=== PATIENT | female | born 1970 | race Caucasian/White ===

== ENCOUNTER 2017-03-07 18:17 | Emergency (ER) | payer OTHER ==
[~2017-03-07] VITALS: Ht 170.2 cm; Wt 170.0 kg
[2017-03-07 18:22] VITALS: Ht 170.2 cm; Wt 170.0 kg
[2017-03-07 18:59] LABS: URINE BLOOD (Dip) POC Trace-intact (NEGATIVE)
--- NOTE | 2017-03-07 18:59 | ERD ---
ER Documentation Chief Complaint Date/Time DATE: 03/07/17 TIME: 18:55 Chief Complaint RIGHT LOWER AREOLA ABSCESS X1WEEK DRAINED X1DAY/DYSURIA/HEMATURIA X1.5WKS HPI Patient is a 46-year-old female with a past medical history of present who presents to the emergency department for concerns of an abscess to her right breast as well as dysuria and hematuria. Patient states that the abscess started approximately 1 week ago. Patient states last night due to having severe pain, she decided to open up the abscess herself. She states that she uses a blade she had at home. he states that copious discharge was expressed from the abscess site. She states it was "like a fountain". She states that initially the abscess was the size of an ache however it is much smaller now. Patient states that she continues to have discharge being expressed from the affected site. Patient does report tactile fevers. Patient states she last took [place] and tramadol at 3 AM this morning for her fevers and pain. Patient also reports dysuria and hematuria for a week and a half. Patient denies any flank pain. Patient denies any abdominal pain, nausea, vomiting, diarrhea. ROS All systems reviewed and are negative except as per history of present illness. Medications Home Meds Active Scripts Tramadol HCl (Tramadol HCl) 50 Mg Tablet, 50 MG PO Q4 Y for PAIN, #10 TAB Prov:BETTE NAVA PA-C 03/07/17 Ibuprofen* (Motrin*) 600 Mg Tab, 600 MG PO Q6, #30 TAB Prov:BETTE NAVA PA-C 03/07/17 Cephalexin* (Keflex*) 500 Mg Capsule, 500 MG PO QID for 10 Days, CAP Prov:BETTE NAVA PA-C 03/07/17 Sulfamethoxazole/Trimethoprim* (Bactrim Ds* Tablet) 1 Each Tablet, 1 TAB PO BID , #20 TAB Prov:BETTE NAVA PA-C 03/07/17 Allergies Allergies: Coded Allergies: Latex (Verified Allergy, Severe, RASHES (HANDS),PERIORBITAL EDEMA AND EDEMA OF THE FACE, LIPS, 04/13/11) No Allergy Information Available (Verified Allergy, Mild, 04/13/11) PMhx/Soc History of Surgery: Yes (LAP BAND (2005), CHOLECYSTECTOMY (1995)) Anesthesia Reaction: No Hx Neurological Disorder: No Hx Respiratory Disorders: No Hx Cardiac Disorders: Yes (HTN) Hx Psychiatric Problems: No Hx Miscellaneous Medical Probl: No Hx Alcohol Use: No Hx Substance Use: No Hx Tobacco Use: No Smoking Status: Never smoker FmHx Family History: No diabetes Physical Exam Vitals Vital Signs Date Time Temp Pulse Resp B/P Pulse Ox O2 Delivery O2 Flow Rate FiO2 03/07/17 18:22 98.3 95 18 141/83 96 Physical Exam GENERAL: Well-developed, well-nourished female. Appears in no acute distress. HEAD: Normocephalic, atraumatic. EYES: Pupils are equally reactive bilaterally. EOMs grossly intact. No conjunctival erythema. ENT: Moist mucous membranes. No uvula deviation. No kissing tonsils. NECK: Supple. No meningismus. Normal range of motion of the neck. RIGHT BREAST: 3 cm circular abscess noted below areola, + active discharge being expressed from wound. Minimal warmth. Minimal surrounding erythema. LUNG: Clear to auscultation bilaterally. No rhonchi, wheezing, rales or coarse breath sounds. HEART: Regular rate and rhythm. No murmurs, rubs or gallops. ABDOMEN: Soft, nontender, and nondistended. Positive bowel sounds in all four quadrants. No rebound tenderness, no guarding. (-) McBurney's point tenderness. BACK: No midline tenderness. No CVA tenderness bilaterally. EXTREMITIES: Equal pulses bilaterally. No peripheral clubbing, cyanosis or edema. No unilateral leg swelling. NEUROLOGIC: Alert and oriented. Moving all four extremities without any difficulty. Normal speech. Steady gait. SKIN: Normal color. Warm and dry. No rashes or lesions. Results 24 hrs Laboratory Tests Test 03/07/17 19:04 Bedside Urine pH (LAB) 5.5 Bedside Urine Protein (LAB) Trace Bedside Urine Glucose (UA) Negative Bedside Urine Ketones (LAB) Negative Bedside Urine Blood Trace-intact Bedside Urine Nitrite (LAB) Negative Bedside Urine Leukocyte Esterase (L 1+ Current Medications Medications (Trade) Dose Ordered Sig/Breezy Route PRN Reason Start Time Stop Time Status Last Admin Dose Admin Ketorolac Tromethamine (Toradol) 30 mg ONCE STAT IM 03/07/17 19:27 03/07/17 19:28 DC 03/07/17 19:31 Procedures/MDM ED COURSE: The patient was stable throughout ED course. I kept the patient and/or family informed of laboratory and diagnostic imaging results throughout the ED course. MEDICATIONS GIVEN: Toradol IM Patient tolerated medication well with no adverse reactions. Patient reported improvement in pain. MEDICAL DECISION MAKING: This is a 46-year-old female who presents to the ED with numerous concerns including an abscess to her right breast as well as dysuria and hematuria. Vital signs were reviewed. Patient was afebrile. Patient did attempt to drain her abscess herself last night using a blade. Wound was noted to be actively draining discharge. I did offer the patient a further incision and drainage of her abscess however she declined. Patient stated "it is too painful". At this time patient will be given p.o. antibiotics and advised to return in 2 days for wound recheck. Patient's urinalysis showed 1+ leukocyte esterase and trace blood. Given these findings, the patient's presentation is most consistent with urinary tract infection and breast abscess. I have a much lower clinical concern for , pyelonephritis, nephrolithiasis, deep space infection, lymphangitis, necrotizing fasciitis. PRESCRIPTIONS: Keflex, Bactrim, Ibuprofen, Tramadol DISCHARGE: At this time, patient is stable for discharge and outpatient management. She was advised to complete full course of antibiotics. Patient was advised to return to the ED in 2 days for wound recheck of breast abscess. I have instructed the patient to follow-up with his/her primary care physician in 1-2 days. Patient should repeat UA in 2 weeks to check for resolution of urinary tract infection. If symptoms persist, patient may need to see a specialist for further examinations and testing. I have instructed the patient to promptly return to the ER at any time for any new or worsening symptoms including increased pain, fever, nausea, vomiting, urinary changes or weakness. The patient and/or family expressed understanding of and agreement with this plan. All questions were answered. Home care instructions were provided. Departure Diagnosis: Primary Impression: Multiple complaints Additional Impressions: Abscess of breast UTI (urinary tract infection) Urinary tract infection type: site unspecified Hematuria presence: with hematuria Qualified Code: N39.0 - Urinary tract infection with hematuria, site unspecified Condition: Stable Patient Instructions: Understanding Urinary Tract Infections (UTIs), Abscess, Antiobiotic Treatment Only Additional Instructions: Take full course of antibiotics. Warm compresses to the affected area. Patient was advised to return in 2 days for wound recheck. Patient advised to return sooner for any new or worsening symptoms including severe pain, fevers, chills, warmth, swelling or redness. Call your primary care doctor TOMORROW for an appointment during the next 1-2 days.See the doctor sooner or return here if your condition worsens before your appointment time. BETTE NAVA PA-C Mar 07, 2017 18:59
[2017-03-07] MEDS ORDERED: SULF1TAB31 PO (19:15)
[2017-03-07] MEDS ORDERED: CEPH-443 PO (19:16)
[2017-03-07] MEDS ORDERED: IBUP-1542 PO (19:27)
[2017-03-07] MEDS ORDERED: KETOROLAC 30 MG INJ IM STA (19:27)
[2017-03-07] MEDS ORDERED: TRAM50TA2 PO (19:32)
== END 2017-03-07 19:44 | disposition home or self-care (01) ==
LOC: FTE 18:17
DX: N61.1 Abscess of the breast and nipple (principal); N39.0 Urinary tract infection, site not specified; I10 Essential (primary) hypertension; Z91.040 Latex allergy status
CPT/HCPCS: 81003; 96372; J1885; Z7502